=== PATIENT | female | born 1980 ===

== ENCOUNTER → 2022-06-12 06:39 | Outpatient (CLI) | payer OTHER | END | disposition home or self-care (01) | LOC: LAB 06:39 | PROVIDERS: ATTEND Specialist | DX: D64.9 Anemia, unspecified (principal); N39.0 Urinary tract infection, site not specified; E06.5 Other chronic thyroiditis; E78.89 Other lipoprotein metabolism disorders; R73.09 Other abnormal glucose; R74.8 Abnormal levels of other serum enzymes; N91.2 Amenorrhea, unspecified; E22.1 Hyperprolactinemia; C56.9 Malignant neoplasm of unspecified ovary ==

== ENCOUNTER 2022-06-12 07:31 | Outpatient (CLI) | payer OTHER | END 2022-06-12 07:33 | disposition home or self-care (01) | LOC: MAMO-SONO 07:31 | PROVIDERS: ATTEND Specialist | DX: N60.11 Diffuse cystic mastopathy of right breast (principal); N60.12 Diffuse cystic mastopathy of left breast ==

== ENCOUNTER 2022-07-31 07:22 | Outpatient (CLI) | payer OTHER | END 2022-07-31 07:27 | disposition home or self-care (01) | LOC: SONOGRAMA 07:22 | PROVIDERS: ATTEND Specialist | DX: N84.1 Polyp of cervix uteri (principal); R10.2 Pelvic and perineal pain; N93.9 Abnormal uterine and vaginal bleeding, unspecified ==